=== PATIENT | male | born 1960 | race Caucasian/White ===

== ENCOUNTER 2019-01-03 13:05 | Inpatient (IN) | payer MEDICAID ==
[~2019-01-03] VITALS: Ht 190.5 cm; Wt 98.4 kg
[~2019-01-03 13:05] MED LIST: CARV-39 PO; DILT60CA PO; INSU100I11 SQ; LISI-167 PO; PRAV20TA2 PO; RIVA20TA PO
[2019-01-03 13:55] LABS: INTERNATIONAL NORMALIZED RATIO 0.97 (0.93-1.1); PROTHROMBIN TIME 10.2 Seconds (9.6-11.5)
[2019-01-03 13:58] LABS: BASOPHILS # (AUTO) 0.05 x10^3/uL (0-0.1); BASOPHILS % (AUTO) 1 % (0-1); EOSINOPHILS # (AUTO) 0.13 x10^3/uL (0-0.4); EOSINOPHILS % (AUTO) 1 % (1-7); LYMPHOCYTES # (AUTO) 2.09 x10^3/uL (1-3.4); LYMPHOCYTES % (AUTO) 22 % (22-44); MD NO; MEAN CORPUSCULAR HEMOGLOBIN 32.6 pg (27.5-34.5); MEAN CORPUSCULAR HGB CONC 33.6 g/dL (33.2-36.2); MEAN CORPUSCULAR VOLUME 97.1 fL (81-97); MEAN PLATELET VOLUME 9.3 fL (7.4-10.4); MONOCYTES # (AUTO) 0.49 x10^3/uL (0.2-0.8); MONOCYTES % (AUTO) 5 % (2-9); NEUTROPHILS # (AUTO) 6.58 x10^3/uL (1.8-6.8); NEUTROPHILS % (AUTO) 70 % (42-75); PLATELET COUNT 183 x10^3/uL (130-400); RED BLOOD COUNT 5.14 x10^6/uL (4.38-5.82); RED CELL DISTRIBUTION WIDTH 13.6 % (9.4-14.8)
[2019-01-03 13:59] LABS: ANION GAP 6 mmol/L (5-15); CALCIUM 9.8 mg/dL (8.5-10.1); CHLORIDE 99 mmol/L (98-107); CREATININE 1.25 mg/dL (0.7-1.3)
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
[2019-01-03] MEDS ORDERED: SODIUM CHLORIDE FLUSH 10ML SYR IVF ONE (15:00)
[2019-01-03] MEDS ORDERED: SODIUM CHLORIDE FLUSH 10ML SYR IVF PRN (16:00)
[2019-01-03] MEDS ORDERED: LORazepam 1MG TABLET PO PRN (16:30)
[2019-01-03] MEDS: LISINOPRIL 10 MG TABLET PO SCH (16:30)
[2019-01-03] MEDS ORDERED: POLYETHYLENE GLYCOL 17 GM PACKET PO PRN (16:30)
[2019-01-03] MEDS ORDERED: hydrALAzine 20 MG/ML, 1ML IVPush PRN (16:30)
--- NOTE | 2019-01-03 16:37 | NUR ---
TO CT VIA [facility]
[2019-01-03 16:51] LABS: HEMOGLOBIN A1C 10.7 % (4.2-6.3)
--- NOTE | 2019-01-03 16:53 | NUR ---
REPORT TO [facility]. TO BE TRANSPORTED TO FLOOR ON RETURN FROM CT
[2019-01-03] MEDS ORDERED: OMNIPAQUE 350 MG/ML, 100ML BOTTLE ONE (17:04)
[2019-01-03 19:01] VITALS: BP 113/78
[2019-01-03] MEDS ORDERED: INSULIN GLARGINE 100 UNITS/ML, PEN SQ-INSULIN SCH (21:00)
[2019-01-03] MEDS: CARVEDILOL 25 MG TABLET PO SCH (22:05)
[2019-01-03] MEDS: PRAVASTATIN 20 MG TABLET PO SCH (22:05)
[2019-01-03] MEDS: INSULIN LISPRO 100 UNITS/ML, PEN SQ-INSULIN SCH (22:40)
[2019-01-04 01:56] VITALS: BP 118/76
[2019-01-04 05:41] LABS: BASOPHILS # (AUTO) 0.04 x10^3/uL (0-0.1); BASOPHILS % (AUTO) 1 % (0-1); EOSINOPHILS # (AUTO) 0.19 x10^3/uL (0-0.4); EOSINOPHILS % (AUTO) 3 % (1-7); LYMPHOCYTES # (AUTO) 2.44 x10^3/uL (1-3.4); LYMPHOCYTES % (AUTO) 36 % (22-44); MD NO; MEAN CORPUSCULAR HGB CONC 33.5 g/dL (33.2-36.2); MEAN CORPUSCULAR VOLUME 98.5 fL (81-97); MEAN PLATELET VOLUME 9.2 fL (7.4-10.4); MONOCYTES # (AUTO) 0.43 x10^3/uL (0.2-0.8); MONOCYTES % (AUTO) 6 % (2-9); NEUTROPHILS # (AUTO) 3.65 x10^3/uL (1.8-6.8); NEUTROPHILS % (AUTO) 54 % (42-75); PLATELET COUNT 173 x10^3/uL (130-400); RED BLOOD COUNT 4.48 x10^6/uL (4.38-5.82); RED CELL DISTRIBUTION WIDTH 13.3 % (9.4-14.8)
[2019-01-04 06:11] LABS: CHLORIDE 104 mmol/L (98-107)
[2019-01-04 06:24] LABS: ALANINE AMINOTRANSFERASE 38 U/L (12-78); ALBUMIN 3.1 g/dL (3.4-5.0); ALKALINE PHOSPHATASE 57 U/L (45-117); ANION GAP 6 mmol/L (5-15); BILIRUBIN,TOTAL 1.2 mg/dL (0.2-1.0); CALCIUM 9.3 mg/dL (8.5-10.1); CREATININE 0.99 mg/dL (0.7-1.3); TOTAL PROTEIN 6.2 g/dL (6.4-8.2)
[2019-01-04 07:15] VITALS: BP 120/81
[2019-01-04] MEDS: INSULIN LISPRO 100 UNITS/ML, PEN SQ-INSULIN SCH ×4 (08:18→22:26)
[2019-01-04] MEDS: LISINOPRIL 10 MG TABLET PO SCH (08:19)
[2019-01-04] MEDS: RIVAROXABAN 20 MG TABLET PO SCH (08:19)
[2019-01-04] MEDS: CARVEDILOL 25 MG TABLET PO SCH ×2 (08:19→22:21)
[2019-01-04] MEDS: ACETAMINOPHEN 325 MG TABLET PO PRN (08:24)
[2019-01-04] MEDS ORDERED: LISINOPRIL 10 MG TABLET PO SCH (09:00)
[2019-01-04 13:17] VITALS: BP 107/72
[2019-01-04 19:18] VITALS: BP 125/84
[2019-01-04] MEDS: PRAVASTATIN 20 MG TABLET PO SCH (22:21)
[2019-01-04] MEDS: INSULIN GLARGINE 100 UNITS/ML, PEN SQ-INSULIN SCH (22:25)
[2019-01-05 01:14] VITALS: BP 94/58
[2019-01-05 05:24] LABS: BASOPHILS # (AUTO) 0.03 x10^3/uL (0-0.1); BASOPHILS % (AUTO) 0 % (0-1); EOSINOPHILS # (AUTO) 0.23 x10^3/uL (0-0.4); EOSINOPHILS % (AUTO) 2 % (1-7); LYMPHOCYTES % (AUTO) 27 % (22-44); MD NO; MEAN CORPUSCULAR HEMOGLOBIN 33.1 pg (27.5-34.5); MEAN CORPUSCULAR HGB CONC 33.5 g/dL (33.2-36.2); MEAN CORPUSCULAR VOLUME 98.8 fL (81-97); MEAN PLATELET VOLUME 9.5 fL (7.4-10.4); MONOCYTES % (AUTO) 7 % (2-9); NEUTROPHILS # (AUTO) 6.82 x10^3/uL (1.8-6.8); NEUTROPHILS % (AUTO) 64 % (42-75); PLATELET COUNT 183 x10^3/uL (130-400); RED BLOOD COUNT 4.24 x10^6/uL (4.38-5.82); RED CELL DISTRIBUTION WIDTH 13.6 % (9.4-14.8)
[2019-01-05 07:46] VITALS: BP 129/75
[2019-01-05 07:53] VITALS: BP 104/60
[2019-01-05] MEDS: CARVEDILOL 25 MG TABLET PO SCH ×2 (07:57→20:36)
[2019-01-05] MEDS: LISINOPRIL 10 MG TABLET PO SCH (07:57)
[2019-01-05] MEDS: RIVAROXABAN 20 MG TABLET PO SCH (07:57)
[2019-01-05] MEDS: INSULIN LISPRO 100 UNITS/ML, PEN SQ-INSULIN SCH ×4 (07:59→21:07)
[2019-01-05] MEDS: ACETAMINOPHEN 325 MG TABLET PO PRN ×2 (08:03→13:35)
[2019-01-05 13:55] VITALS: BP 111/74
[2019-01-05] MEDS: GABAPENTIN 100 MG CAPSULE PO SCH ×2 (16:05→20:36)
[2019-01-05] MEDS: PRAVASTATIN 20 MG TABLET PO SCH (20:37)
[2019-01-05 21:04] VITALS: BP 125/78
[2019-01-05] MEDS: INSULIN GLARGINE 100 UNITS/ML, PEN SQ-INSULIN SCH (21:07)
[2019-01-06 01:32] VITALS: BP 110/74
[2019-01-06 07:42] VITALS: BP 121/78
[2019-01-06] MEDS: GABAPENTIN 100 MG CAPSULE PO SCH ×2 (08:20→15:48)
[2019-01-06] MEDS: metFORMIN 850 MG TABLET PO SCH ×2 (08:20→15:57)
[2019-01-06] MEDS: LISINOPRIL 10 MG TABLET PO SCH (08:20)
[2019-01-06] MEDS: RIVAROXABAN 20 MG TABLET PO SCH (08:20)
[2019-01-06] MEDS: CARVEDILOL 25 MG TABLET PO SCH (08:20)
[2019-01-06] MEDS: INSULIN LISPRO 100 UNITS/ML, PEN SQ-INSULIN SCH ×3 (08:21→15:59)
[2019-01-06] MEDS: ACETAMINOPHEN 325 MG TABLET PO PRN (11:30)
[2019-01-06] MEDS ORDERED: LISI-167 PO ×3 (12:56→14:57)
[2019-01-06] MEDS ORDERED: METF850T PO ×3 (12:56→14:57)
[2019-01-06] MEDS ORDERED: INSU100I11 SQ ×2 (12:56)
[2019-01-06] MEDS ORDERED: GABA-826 PO ×3 (12:56→14:57)
[2019-01-06 14:16] VITALS: BP 123/85
[2019-01-06] MEDS ORDERED: PRAV20TA PO (14:56)
[2019-01-06] MEDS ORDERED: CARV25TA12 PO (14:56)
[2019-01-06] MEDS ORDERED: RIVA20TA PO (14:56)
[2019-01-06 17:20] VITALS: BP 133/76
[2019-01-06] MEDS ORDERED: INSULIN GLARGINE 100 UNITS/ML, PEN SQ-INSULIN SCH (21:00)
== END 2019-01-06 18:30 | disposition home or self-care (01) | DRG 74 ==
LOC: ED 15:46 → EDIP 16:24 → 4NOR 17:11
PROVIDERS: ADMIT Internal Medicine; ATTEND Internal Medicine
DX: E10.610 Type 1 diabetes mellitus with diabetic neuropathic arthropathy (principal); L03.116 Cellulitis of left lower limb; E87.1 Hypo-osmolality and hyponatremia; E10.51 Type 1 diabetes mellitus with diabetic peripheral angiopathy without gangrene; E10.65 Type 1 diabetes mellitus with hyperglycemia; E78.5 Hyperlipidemia, unspecified; F10.10 Alcohol abuse, uncomplicated; F12.90 Cannabis use, unspecified, uncomplicated; F17.200 Nicotine dependence, unspecified, uncomplicated; G25.0 Essential tremor; I10 Essential (primary) hypertension; I48.91 Unspecified atrial fibrillation; Z79.01 Long term (current) use of anticoagulants; Z79.899 Other long term (current) drug therapy; I77.1 Stricture of artery
CPT/HCPCS: 36415; 80048; 80053; 82947; 82962; 83036; 85025; 85610; 86140; 93005; 93922; 93926; 96372; 99285; G0378; Q9967; J1815